=== PATIENT | female | born 1975 | race Caucasian/White ===

== ENCOUNTER 2019-03-12 21:32 | Emergency (ER) | payer OTHER, SELFPAY ==
[2019-03-12 08:13] VITALS: BMI 37.3
[2019-03-12 21:35] VITALS: BP 132/82; PULSE 107; RESP 16; TEMP 37; O2SAT 96; BMI 39.5
--- NOTE | 2019-03-12 21:55 | ED.DEP ---
ED Disposition - Plan for ED Patient: Instructions: ED Allergic Conjunctivitis, ED Allergy Nasal
--- NOTE | 2019-03-12 21:59 | ED.DCSUM_ITS ---
- ER Visit Summary Date of Service: 03/12/19 Chief Complaint: Swelling around her eyes History of Present Illness: The patient is a 43 F who presents with swelling around her eyes. She initially noticed this last night. She complains of puffy eyes and some crusting. She was worried she may have pinkeye so was seen at the urgent care earlier this morning. She also complains of sinus pressure and postnasal drip. She had some pain behind her ear. She was diagnosed with sinusitis and started on antibiotics this morning. No fevers chest pain shortness of breath nausea vomiting. She was told that if her symptoms got worse she should be evaluated in the emergency department. She states she was worried about infection going into the bone. Physical Examination: Afebrile heart rate 107 vitals otherwise normal Patient resting comfortably Mild periorbital edema Tympanic membranes are clear No erythema of the mastoid Heart regular rate and rhythm Lungs clear Abdomen soft Alert Test Results: Not indicated Emergency Department Course and Treatment: Given patient's associated periorbital edema sinus pressure postnasal drip I explained I feel this is most likely allergic in nature. She was advised on antihistamines. She did take Zyrtec earlier. She was advised to also use Benadryl. She was advised to use Tylenol or ibuprofen for pain. I am not concerned for acute infectious mastoiditis. She has no otitis media. I advised that I do not believe antibiotics are indicated based on her current presentation. Patient discharged. She understands to return for new or worsening symptoms. Treatment Plan: [] Disposition: Discharge Impression: Allergic rhinitis Allergic conjunctivitis This note was generated with [employer] dictation software. It may contain incorrect words, spelling, and punctuation that were not noted in review of the chart prior to signing ED Disposition - Plan for ED Patient: Instructions: ED Allergic Conjunctivitis, ED Allergy Nasal
== END 2019-03-12 22:24 | disposition home or self-care (01) ==
LOC: ED 22:13
PROVIDERS: Emergency Provider Emergency Medicine
DX: J30.9 Allergic rhinitis, unspecified (principal); H10.13 Acute atopic conjunctivitis, bilateral
CPT/HCPCS: 99282

== ENCOUNTER 2023-02-22 09:22 | Emergency (ER) | payer OTHER, SELFPAY ==
[2023-02-22 09:23] VITALS: BP 159/97; BP 167/113; PULSE 69; PULSE 71; RESP 16; RESP 18; TEMP 36.6; O2SAT 98; BMI 38.1
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
[2023-02-22 10:14] VITALS: BP 159/97; PULSE 71; RESP 16; O2SAT 98
== END 2023-02-22 11:06 | disposition home or self-care (01) ==
LOC: ED 09:56
PROVIDERS: Emergency Provider Emergency Medicine; PCP Internal Medicine; Visit Provider Emergency Medicine
DX: S06.0X0A Concussion without loss of consciousness, initial encounter (principal); S10.93XA Contusion of unspecified part of neck, initial encounter; V46.9XXA Unspecified car occupant injured in collision with other nonmotor vehicle in traffic accident, initial encounter
CPT/HCPCS: 99282